=== PATIENT | male | born 2000 | race Caucasian/White ===

== ENCOUNTER 2024-03-17 09:16 | Emergency (ER) | payer OTHER, SELFPAY ==
--- NOTE | 2024-03-17 | ECG_ITS ---
Test Reason : SYNCOPE Blood Pressure : */* mmHG Vent. Rate : 97 BPM Atrial Rate : 97 BPM P-R Int : 158 ms QRS Dur : 96 ms QT Int : 328 ms P-R-T Axes : 54 58 42 degrees QTcB Int : 416 ms Normal sinus rhythm Normal ECG No previous ECGs available Referred By: Generic ED Physician Electronically Signed By: Jeronimo Munoz
[2024-03-17 09:22] VITALS: BP 110/64; PULSE 86; O2SAT 97
[2024-03-17 09:50] VITALS: BP 101/62; PULSE 104; RESP 20; TEMP 37.9; O2SAT 96; BMI 24.4
[2024-03-17] MEDS: Ibuprofen 600 MG TABLET PO (09:56)
[2024-03-17 10:11] LABS: MANUAL DIFF FLAG NO
[2024-03-17 10:16] LABS: Basophils Percent Auto 0.3 % (0-2); Eosinophils Percent Auto 0.2 % (0-4); Hematocrit 41.9 % (42.0-52.0); Hemoglobin 14.8 g/dl (14.0-18.0); Imm Gran Abs Auto 0.06 X10*3/uL (0.00-0.03); Imm Gran Pct Auto 0.5 % (0.0-0.4); Lymphocytes Percent Auto 8.6 % (20-40); Mean Corpuscular HGB Conc 35.3 g/dl (31.0-36.0); Mean Corpuscular Hemoglobin 30.1 pg (27.0-33.0); Mean Corpuscular Volume 85.2 fL (80.0-98.0); Mean Platelet Volume 8.6 fL (9.4-12.4); Monocytes Percent Auto 9.1 % (2-11); Neutrophils Percent Auto 81.3 % (45-73); Platelet Count 197 X10*3/uL (160-400); Red Blood Count 4.92 X10*6/uL (4.60-5.80); Red Cell Distribution Width 11.6 % (11.0-16.0); White Blood Count 11.1 X10*3/uL (4.8-10.8)
[2024-03-17 10:29] LABS: Alanine Aminotransferase 14 U/L (0-40); Albumin Level 4.4 g/dL (3.5-5.0); Alkaline Phosphatase 54 U/L (39-117); Anion Gap 9 (12-20); Aspartate Amino Transferase 23 U/L (5-37); Bilirubin Total 0.7 mg/dL (0.0-1.0); Blood Urea Nitrogen 11 mg/dL (9-16); Carbon Dioxide 27 mmol/L (22-29); Chloride 104 mmol/L (96-108); Creatinine Clr Calc Pharmacy 108.7; Estimated Glomerular Filt Rate > 60; Glucose Random 104 mg/dL (60-115); Potassium 3.3 mmol/L (3.3-5.1); Sodium 137 mmol/L (135-145); Total Protein 7.6 g/dL (6.5-8.0)
[2024-03-17 10:59] LABS: Influenza A PCR POSITIVE (Negative); Influenza B PCR NEGATIVE (Negative); Resp Syncy Virus RNA Qual PCR NEGATIVE (Negative); SARS COV2 PCR INHOUSE NEGATIVE (Negative)
[2024-03-17 12:24] VITALS: BP 107/71; PULSE 99; RESP 20; TEMP 37; O2SAT 98
[2024-03-17 13:25] LABS: INTERNATIONAL NORM RATIO 1.1 (0.9-1.1); Prothrombin Time 13.3 SEC (10.9-12.4)
[2024-03-17 13:27] LABS: Partial Thromboplastin Time 34.8 SEC (26.0-36.8)
--- NOTE | 2024-03-17 13:35 | ED.GENADULT ---
HPI - General Adult General Chief complaint: General Medical Stated complaint: FLU LIKE SX,N/V,DIZZY, LOW GRADE FEVER PER EMS Time Seen by Provider: 03/17/24 12:26 Source: patient Mode of arrival: ambulatory Limitations: no limitations History of Present Illness ED Provider: Isidro Hopper HPI narrative: 23-year-old male with no past medical history presents to ED for coughing, congestion, and nausea. Patient states his friend was sick with the flu over the past week and now he is having symptoms. Patient states having symptoms for the past 2 days. Patient denies any chest pain or shortness of breath. Patient states having fatigue and syncopized twice this morning. Patient denies having any chest pain headache or abdominal pain before typical episodes. Patient presently denies any chest pain or shortness of breath. Related Data Previous Rx's ?Medication ?Instructions ?Recorded oseltamivir 75 mg capsule (Tamiflu) 75 mg PO BID 5 days #10 caps 03/17/24 Allergies Allergy/AdvReac Type Severity Reaction Status Date / Time Sulfa (Sulfonamide AdvReac Hives Verified 03/17/24 09:53 Antibiotics) Review of Systems Review of Systems: Fever cough congestion nausea. Yes all other systems are reviewed and are negative PMFSH Social History Social History Advance Directives: No Advance Directives Information Provided: Yes Physical Exam ED Vital Signs: Vital Signs - 24 hr 03/17/24 09:50 03/17/24 12:24 Temperature 100.3 F 98.6 F Pulse Rate 104 H 99 Respiratory Rate 20 20 Blood Pressure 101/62 107/71 Pulse Oximetry 96 98 Oxygen Delivery Method Room Air Room Air BMI result Body Mass Index 24.4 Const General: cooperative, healthy appearing, comfortable, no acute distress, well developed, alert, awake and Physically active Orientation/consciousness: patient oriented x3 HENMT Head: Yes normal to inspection, Yes No palpable skull fracture present, Yes normocephalic and Yes atraumatic Ears: hearing grossly normal bilaterally, external ears normal, TM's normal bilaterally, TM normal on the right, TM normal on the left, EAC's normal, mastoids normal and no periauricular adenopathy Throat: Yes posterior oropharynx normal, Yes tonsils normal and Yes uvula midline Eyes General: appearance normal, both eyes and all related structures Neck Neck: Yes normal visual inspection, Yes full ROM, Yes no lymphadenopathy, Yes no meningeal signs, Yes trachea midline, Yes supple, No anterior neck swelling and No tender Chest Chest palpation & inspection: normal inspection of the chest and normal palpation of entire chest wall Resp Effort & Inspection: normal respiratory effort and able to speak in complete sentences Auscultation: clear to auscultation bilaterally Cardio Jugular venous distension: no JVD GI Inspection: Yes normal to inspection Palpation (GI): Soft to palpation, not firm, nontender, no guarding and not rigid General: Yes no CVA tenderness Back/Spine/Pelvis Back: no CVA tenderness and No back tenderness Skin General skin exam: no rashes or lesions noted, elasticity normal and turgor normal Neuro General: patient oriented x3, gait normal, tone normal, moves all extremities, Normal light touch and pain sensation, no meningeal signs, no focal motor deficits, CN's II-XI intact bilaterally and normal sensation to monofilament Extrem General: Yes normal to inspection, Yes full ROM and Yes capillary refill normal Psych Appearance: grossly normal, well kempt and not disheveled Medications Administered Discontinued Medications Generic Name Dose Route Start Last Admin Trade Name Freq PRN Reason Stop Dose Admin Ibuprofen 600 mg 03/17/24 09:54 03/17/24 09:56 Ibuprofen 600 Mg Tablet PO 03/17/24 09:55 600 mg ONCE ONE Administration Medical Decision Making Medical Decision Making [facility] Narrative: 23 yold male presents to the ED for URI symptoms. Patient was seen and evaluated by me. Troponin was ordered due to patient having syncopal episodes. Patient's positive influenza. Patient well-appearing. Labs vital signs stable. Harned Head CT Rules is 0. NO indication for head CT scan. Heart score is 0. Not suspecting PE, myocarditis, pericarditis, CHF, hypoxia, pneumonia, brain bleed, [place], or cervical spine fracture, or any other life-threatening etiology. It was discussed for patient to receive Tamiflu prescription. Patient left the ED before re-evaluation by me. EKG negative STEMI. 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 voicemail was left. Patient left before orthostatic were ordered. Differential Diagnosis Differential Diagnoses: The differential diagnosis associated with the presentation includes (URI, Covid, flu, ) Admission/Observation Consideration of admission/observation: Escalation of care including admission/observation considered Lab Data MDM Lab Attestation statement: I reviewed the patient's lab results. 03/17/24 10:08 03/17/24 10:08 Labs: Lab Results 03/17/24 03/17/24 Range/Units 10:08 13:14 WBC 11.1 H (4.8-10.8) X10*3/uL RBC 4.92 (4.60-5.80) X10*6/uL Hgb 14.8 (14.0-18.0) g/dl Hct 41.9 L (42.0-52.0) % MCV 85.2 (80.0-98.0) fL MCH 30.1 (27.0-33.0) pg MCHC 35.3 (31.0-36.0) g/dl RDW 11.6 (11.0-16.0) % Plt Count 197 (160-400) X10*3/uL MPV 8.6 L (9.4-12.4) fL Immature Gran % (Auto) 0.5 H (0.0-0.4) % Neut % (Auto) 81.3 H (45-73) % Lymph % (Auto) 8.6 L (20-40) % Williams % (Auto) 9.1 (2-11) % Eos % (Auto) 0.2 (0-4) % Baso % (Auto) 0.3 (0-2) % Lymph # (Auto) 1.0 L (1.2-4.9) X10*3/uL Williams # (Auto) 1.0 (0.1-1.2) X10*3/uL Eos # (Auto) 0.0 (0.0-0.4) X10*3/uL Baso # (Auto) 0.0 (0.0-0.2) X10*3/uL Abs Immat Gran (auto) 0.06 H (0.00-0.03) X10*3/uL Absolute Neuts (auto) 9.0 H (2.0-8.3) x10*3/uL Absolute Nucleated RBC 0.000 (0.0-0.012) X10*3/uL Nucleated RBC % (auto) 0.0 (0.0-0.2) /100WBC PT 13.3 H (10.9-12.4) SEC INR 1.1 (0.9-1.1) APTT 34.8 (26.0-36.8) SEC Sodium 137 (135-145) mmol/L Potassium 3.3 (3.3-5.1) mmol/L Chloride 104 (96-108) mmol/L Carbon Dioxide 27 (22-29) mmol/L Anion Gap 9 L (12-20) BUN 11 (9-16) mg/dL Creatinine 1.14 (0.5-1.4) mg/dL Estim Creat Clear Calc 108.7 Estimated GFR > 60 Random Glucose 104 (60-115) mg/dL Calcium 9.0 (8.4-10.2) mg/dL Total Bilirubin 0.7 (0.0-1.0) mg/dL AST 23 (5-37) U/L ALT 14 (0-40) U/L Alkaline Phosphatase 54 (39-117) U/L Troponin I High Sens 3.5 (<3.5-35.0) ng/L Total Protein 7.6 (6.5-8.0) g/dL Albumin 4.4 (3.5-5.0) g/dL Influenza Type A (PCR) POSITIVE A (Negative) Influenza Type B (PCR) NEGATIVE (Negative) RSV RNA Qual (PCR) NEGATIVE (Negative) SARS-CoV-2 RNA (RT-PCR) NEGATIVE (Negative) Independent Interpretation I performed an independent interpretation of an: EKG (Negative STEMI) Independent Historian Clinical information obtained from an independent historian. History obtained from or confirmed by: Other (patient) Discharge Plan Discharge Clinical Impression: Influenza Patient Disposition: Left W/O Completing Treatment Prescriptions: New oseltamivir [Tamiflu] 75 mg capsule 75 mg PO BID 5 Days Qty: 10 0RF
[2024-03-17 13:39] LABS: Troponin-I High Sensitivity 3.5 ng/L (<3.5-35.0)
== END 2024-03-17 16:31 | disposition left against medical advice (07) ==
PROVIDERS: Physician Assistant; Emergency Provider Emergency Medicine
DX: J10.1 Influenza due to other identified influenza virus with other respiratory manifestations (principal); R55 Syncope and collapse; R05.9 Cough, unspecified; Z03.818 Encounter for observation for suspected exposure to other biological agents ruled out
CPT/HCPCS: 0241U; 36415; 80053; 84484; 85025; 85610; 85730; 93005; 99283

== ENCOUNTER → 2024-03-17 10:03 | Outpatient (BNV) | payer OTHER, SELFPAY | PROVIDERS: Emergency Provider Emergency Medicine; Visit Provider Internal Medicine Cardiovascular Disease | DX: R55 Syncope and collapse (principal) | CPT/HCPCS: 93010 ==

== ENCOUNTER 2024-10-07 11:34 | Outpatient (REF) | payer OTHER, SELFPAY ==
--- OUTSIDE RECORDS SUMMARY | 2024-10-07 10:45 | XMS_ITS | Encounter Summary ---
Author Organization [employer] Address [address] [facility] [address] [place] [address] Care Team Providers Care Hot Header Operator Name Role Phone Unavailable Primary Care Provider Unavailabl e Encounter Details Date Type Department Care Team (Late st Contact Info) Description 10/07/2024 10:45 AM EDT Office Visit [facility] [address], [place] [phone] Travis Cronin MD [address] [place], [place] [phone] Encounter for medical examination to establish care (Primary Dx); Encounter for immunization Social History Tobacco Use Types Packs/Day Years Used Date Smoking Tobacco: Never Smokeless Tobacco: Never Tobacco Cessation:Counseling Given: Not Answered Alcohol Use Standard Drinks/Week Comments Yes 0 (1 standard drink = 0.6 oz pur e alcohol) 1-2 times a week mostly beer Sex and Gender Information Value Date Recorded Sex Assigned at Male 10/07/2024 10:31 AM EDT Legal Sex Male 4:10 PM EST Gender Identity Male 10/07/2024 10:31 AM EDT Sexual Orientation Don't know 10/07/2024 10 :31 AM EDT documented as of this encounter Last Filed Vital Signs Vital Sign Reading Time Taken Comments Blood Pressure 132/83 10/07/2024 11:02 AM EDT Pulse 80 10/07/2024 11:02 AM EDT Temperature 36.7 C (98 F) 10/07/2024 11:02 AM EDT Respiratory Rate 20 10/07/2024 11:02 AM EDT Oxygen Saturation - - Inhaled Oxygen Concentration - - Weight 79.4 kg (175 lb) 10/07/2024 11:02 AM EDT Height 182.9 cm (6') 10/07/2024 11:02 AM EDT Body Mass Index 23.73 10/07/2024 11:02 AM EDT documented in this encounter Miscellaneous Notes * Assessment & Plan Note - Travis Grijalva MD - 10/07/2024 11:17 AM EDTAssociated Problem(s): Encounter for medical examination to establish care Er visit: April due to fainting after dehydration Hospitalization:- Pmhx: - Pshx: deviated septum/sinus 2021 All: sulfa (hives) Meds: zyrtec daily (Otc) documented in this encounter Plan of Treatment Scheduled Orders Name Type Priority Associated Diagnoses Orde r Schedule CBC auto differential Lab Routine Encounter for medical examination to establish care Expected: 10/07/2024 (Approximate), Expires: 10/07/2025 Comprehensive Metabolic Panel Lab Routine Encounter for medical examination to establish care Expected: 10/07/2024 (Approximate), Expires: 10/07/2025 Lipid Panel, Standard Lab Routine Encounter for medical examination to establish care Expected: 10/07/2024 (Approximate), Expires: 10/07/2025 TSH W/Reflex to FT4 Lab Routine Encounter for medical examination to establish care Expected: 10/07/2024 (Approximate), Expires: 10/07/2025 HIV-1/2 Antigen and Antibodies, Fourth Generation, with Reflexes Lab Routine Encounter for medical examination to establish care Expected: 10/07/2024 (Approximate), Expires: 10/07/2025 Hepatitis C Antibody with Reflex to HCV, RNA, Quantitative, Real-Time PCR Lab Routine Encounter for medical examination to establish care Expected: 10/07/2024, Expires: 10/07/2025 documented as of this encounter Visit Diagnoses Diagnosis Encounter for medical examination to establish care- Primary Encounter for immunization documented in this encounter
[2024-10-07 14:25] LABS: MANUAL DIFF FLAG NO
[2024-10-07 14:34] LABS: Hematocrit 41.4 % (42.0-52.0); Hemoglobin 14.5 g/dl (14.0-18.0); Imm Gran Abs Auto 0.04 X10*3/uL (0.00-0.03); Imm Gran Pct Auto 0.6 % (0.0-0.4); Lymphocytes Absolute Auto 2.5 X10*3/uL (1.2-4.9); Mean Corpuscular HGB Conc 35.0 g/dl (31.0-36.0); Mean Corpuscular Hemoglobin 30.1 pg (27.0-33.0); Mean Corpuscular Volume 85.9 fL (80.0-98.0); NRBC Abs Auto 0.000 X10*3/uL (0.0-0.012); NRBC Pct Auto 0.0 /100WBC (0.0-0.2); Platelet Count 263 X10*3/uL (160-400); Red Blood Count 4.82 X10*6/uL (4.60-5.80); White Blood Count 6.9 X10*3/uL (4.8-10.8)
[2024-10-07 14:55] LABS: Alanine Aminotransferase 18 U/L (0-40); Albumin Level 4.7 g/dL (3.5-5.0); Alkaline Phosphatase 64 U/L (39-117); Anion Gap 11 (12-20); Aspartate Amino Transferase 45 U/L (5-37); Blood Urea Nitrogen 18 mg/dL (9-16); Calcium 8.8 mg/dL (8.4-10.2); Carbon Dioxide 27 mmol/L (22-29); Chloride 109 mmol/L (96-108); Cholesterol 139 mg/dL (<200); Estimated Glomerular Filt Rate > 60; HDL Cholesterol 39 mg/dL (>40); Potassium 3.6 mmol/L (3.3-5.1); Sodium 143 mmol/L (135-145); Total Protein 7.4 g/dL (6.5-8.0); Triglycerides 141 mg/dL (<150)
[2024-10-08 08:10] LABS: HIV Num 1 0.05 S/CO (0.00-0.99); ~HepC Num1 0.13 S/CO (0.00-0.79); ~Hepatitis C Antibody Nonreactive (Nonreactive)
== END 2024-10-07 11:35 | disposition home or self-care (01) ==
LOC: HO.CHCLDS 11:34
PROVIDERS: Visit Provider Internal Medicine
DX: Z00.00 Encounter for general adult medical examination without abnormal findings (principal); Z11.59 Encounter for screening for other viral diseases; Z11.4 Encounter for screening for human immunodeficiency virus [HIV]
CPT/HCPCS: 36415; 80053; 80061; 84443; 85025; 86803; 87389